=== PATIENT | male | born 1940 | race Caucasian/White ===

== ENCOUNTER 2025-04-16 12:39 | Emergency (ER) | payer MEDICARE, OTHER, SELFPAY ==
[2025-04-16 12:43] VITALS: BP 147/71
[2025-04-16 13:06] LABS: Hematocrit 36.1 % (39.0-52.0); Hemoglobin 11.6 g/dL (13.0-18.0); Mean Corp Hgb Conc. 32.1 g/dL (33.0-37.0); Mean Corpuscular Volume 92.3 fL (80.0-94.0); Red Cell Dist. Width 13.6 % (11.5-14.5)
[2025-04-16 13:20] LABS: ALT (SGPT) 29 U/L (0-50); AST (SGOT) 31 U/L (17-59); Albumin 4.2 g/dl (3.5-5.0); Alkaline Phosphatase 67 U/L (38-126); Blood Urea Nitrogen 31 mg/dl (9-20); Calcium 9.0 mg/dl (8.4-10.2); Carbon Dioxide 24 mmol/L (22-30); Chloride 108 mmol/L (98-107); Glucose 165 mg/dl (70-99); Potassium 5.0 mmol/L (3.5-5.1); Sodium 139 mmol/L (135-145); Total Protein 7.5 g/dl (6.3-8.2); eGFR 54.17
[2025-04-16 13:36] LABS: Nucleated Red Blood Cells % 0 % (-); Platelet Count 114 10^3/uL (130-400)
--- NOTE | 2025-04-16 17:04 | ED.GENMED ---
History of Present Illness
General
Chief Complaint: Dizziness
Source: patient and spouse
Time Seen by Provider: 04/16/25 16:40
History of Present Illness
History of Present Illness:
Note:
CHIEF COMPLAINT(S)
Lightheadedness experiencing multiple episodes, particularly when changing from sitting or lying to standing positions.
HISTORY OF PRESENT ILLNESS
The patient is an 84-year-old male with a significant past medical history of using Terazosin for hypertension for 20 years, presenting with lightheadedness. The episodes of lightheadedness occur primarily when shifting from a seated or lying
position to standing, notably early in the morning around 5 AM and after breakfast while standing in front of the curio. The patient described these episodes as feeling like losing strength of control, necessitating sitting down to prevent falling.
The blood pressure, as checked by the patients daughter who is a nurse, was recorded at 150/80 mmHg. The patient denies any recent chest pain, diarrhea, or dehydration with adequate fluid intake noted. No new medications have been started recently,
and he underwent a retinal surgery on the left eye on March 24, which resulted in a gas bubble and blurred vision. Presently, the patient reports feeling fine when at rest or lying in bed.
PAST MEDICAL AND SURGICAL HISTORY
- Chronic kidney disease with fluctuating creatinine levels (reported creatinine as high as 1.50).
- Retinal surgery on left eye with gas bubble insertion in March.
CHRONIC MEDICAL CONDITIONS SIGNIFICANTLY AFFECTING CARE
- Hypertension managed with Terazosin.
- Chronic kidney disease.
PHYSICAL EXAM
General: Alert, no acute distress.
Skin: Warm, dry.
Head: Normocephalic, atraumatic.
Neck: Supple, trachea midline.
Eye, Ears, Nose, Mouth, and Throat: Oral mucosa moist.
Cardiovascular: Normal peripheral perfusion, No edema.
Respiratory: Respirations are non-labored.
Gastrointestinal: Abdomen nondistended.
Back: Normal range of motion, Normal alignment.
Musculoskeletal: Normal range of motion, normal strength.
Neurological: Alert and oriented to person, place, time, and situation, No focal neurological deficit observed, no pronator drift, equal bilateral strength, normal coordination. Normal [id number]. Normal gait
Psychiatric: Cooperative, appropriate mood & affect.
PLAN
1. Conduct orthostatic vital signs to assess for orthostasis.
2. Review blood test results to rule out heart problems, stroke, severe anemia, and kidney failure.
3. Administer IV fluids to address possible dehydration and observe if symptoms improve.
4. Monitor and reassess the patients condition following these interventions.
DIFFERENTIAL DIAGNOSIS
The Differential Diagnosis includes, in no particular order and is not limited to:
1. Orthostatic hypotension
2. Dehydration
3. Adverse effects of antihypertensive medication
4. Vestibular dysfunction
5. Anemia
6. Arrhythmia
7. Heart failure
8. Transient ischemic attack
9. Neurological disorder
10. Hypoglycemia
Disposition:
SUMMARY OF ENCOUNTER
The patient, an 84-year-old male, presented with lightheadedness, which predominantly occurred when moving to a standing position. The symptoms were noted to be positional. During his emergency department (ED) visit, laboratory tests were conducted,
and IV fluids were administered. The patient experienced significant improvement in symptoms following fluid administration and was able to ambulate without further lightheadedness or balance issues.
DISPOSITION
Discharge.
ASSESSMENT
The patients symptoms suggestive of orthostatic hypotension improved with intravenous fluid administration.
EMERGENCY TREATMENTS ADMINISTERED
IV fluids.
REASSESSMENT
The patient was reassessed after the administration of IV fluids and reported feeling significantly better. He was able to stand and walk around the ED and go to the bathroom without any recurrence of symptoms.
PLAN
The patient is safe for discharge and advised to follow up with his primary care physician for further evaluation and management of his symptoms.
INDEPENDENT REVIEW OF LABS AND INTERPRETATION OF TESTS
My independent review of CBC indicates a hemoglobin level of 11.6 g/dL. My independent interpretation of the basic metabolic panel indicates a BUN/Creatinine ratio of 31/1.3 mg/dL and a glucose level of 165 mg/dL. My independent interpretation of
the EKG shows a right bundle branch block with no ischemic changes, demonstrating normal sinus rhythm.
FOLLOW-UP INSTRUCTIONS
The patient is advised to follow up with his primary care physician to reassess his condition and review his medication regimen.
MEDICATION RECONCILIATION
Administration of IV fluids was noted, and prescription adjustments should be considered during the follow-up.
MEDICAL DECISION MAKING
- Number and Complexity of Problems Addressed: Chronic conditions affecting care include hypertension managed with terazosin and chronic kidney disease. Differential Diagnosis includes orthostatic hypotension, dehydration, adverse effects of
antihypertensive medication, vestibular dysfunction, anemia, arrhythmia, heart failure, transient ischemic attack, neurological disorder, and hypoglycemia.
- Data:
Category 1
The patients symptoms were alleviated with IV fluid administration and reassessment confirmed improvement without recurrent symptoms.
Category 2
My independent interpretation of laboratory results and EKG confirmed findings.
-Risk: Consideration of Admission/Observation: Escalation of care, including admission/observation, was considered given the complexity and risk of the patients presenting complaint, exam findings, and underlying comorbidities. However, ultimately
the patient was deemed safe for outpatient management with close follow-up. Reasoning: Workup was reassuring, did not reveal any acute life/organ-threatening processes, patients symptoms were well controlled upon reevaluation, reexamination was
reassuring, vitals were stable, patient was agreeable with discharge and reliable for follow-up.
DIAGNOSIS
- Orthostatic hypotension (ICD-10: I95.1)
- Anemia (ICD-10: D64.9)
- Right bundle branch block (ICD-10: I45.10)
Phy Exam
Physical Exam
Physical Exam:
.
Course
Orders/Labs/Results
Orders:
Orders
04/16/25 12:40
Electrocardiogram (*1) Urgent
Reason for Study: Vertigo / Dizzy
EKG- Treatment ONCE
04/16/25 12:55
CBC/With Diff [Complete Blood Count/With Diff] Urgent
CMP [Comprehensive Metabolic Panel] Urgent
04/16/25 17:03
Orthostatic VS- Treatment ONCE
04/16/25 17:04
0.9% Sodium Chloride 1000 ml [Nss] 1,000 ml IV BOLUS
Abnormal Lab Results
04/16/25
12:55
RBC 3.91 L 10^6/uL
(4.70-6.10)
Hgb 11.6 L g/dL
(13.0-18.0)
Hct 36.1 L %
(39.0-52.0)
MCHC 32.1 L g/dL
(33.0-37.0)
Plt Count 114 L 10^3/uL
(130-400)
MPV 12.5 H fL
(7.4-10.4)
Abs Immat Gran (auto) 0.1 H 10^3/uL
(0-0.05)
Absolute Monos (auto) 0.8 H 10^3/uL
(0.1-0.6)
Immature Gran % 0.6 H %
(0-0.5)
Lymphocytes % 20.0 L %
(20.5-51.1)
Monocytes % 10.1 H %
(1.7-9.3)
Chloride 108 H mmol/L
(98-107)
BUN 31 H mg/dl
(9-20)
Glucose 165 H mg/dl
(70-99)
04/16/25 12:55
04/16/25 12:55
Vital Signs
Initial and Last Documented VS:
Initial Vital Signs
Temp Pulse Resp BP Pulse Ox
97.5 F 74 15 147/71 97
04/16/25 12:43 04/16/25 12:43 04/16/25 12:43 04/16/25 12:43 04/16/25 12:43
Last Documented Vital Signs
Temp Pulse Resp BP Pulse Ox
97.5 F 80 15 176/81 96
04/16/25 12:43 04/16/25 19:18 04/16/25 19:00 04/16/25 19:00 04/16/25 19:18
*Pulse Oximetry
SaO2: 97
Oxygen Mode of Delivery: Room air
Patient hypoxic: no
*EKG
Interpreted by ED Provider?: Yes
Interpretation: abnormal
Rate: normal
Rhythm: sinus
QRS Pattern: right bundle branch block
Ischemia: non-specific ST changes
*[facility] Programmer Interpretation
Rate: normal
Interpretation: normal
Rhythm: sinus
*Critical Care Note
Total Time (30-74mins, 75-104mins- exclusive of procedures): Not Applicable
ED Attending Note
-
Portions of this chart may have been created with voice recognition software.� Occasional wrong word or��sound alike� substitutions may have occurred due to the inherent limitations of voice recognition software.
Discharge Plan
Departure
Patient Disposition: Home (Routine Discharge)
Date of Disposition: 04/16/25
Time of Disposition: 19:35
Patient with high blood pressure during this ER visit?: Yes
Discharge Problem:
Lightheadedness, Dehydration
Instructions: Dizziness, Nonvertigo, (DC), BLOOD PRESSURE
Referrals:
Esvin Peralta I., DO [Family Provider, Internal Medicine]
Activity Restrictions/Additional Instructions:
Please see your doctor in the next 2 to 3 days for follow-up and reevaluation. Please drink plenty fluids and maintain proper hydration. Return immediately for chest pain, palpitations, fevers or any other concerns.
Interventions
Interventions:
*Risk Screen - Suicide Last Done: 04/16/25 19:23
*General Assessment Last Done: 04/16/25 12:43
*Neglect/Abuse Screening Last Done: 04/16/25 12:43
*ED- Fall Risk Assessment Last Done: 04/16/25 19:23
*ED COVID-19 Vaccine History Last Done: 04/16/25 12:43
*ED Influenza Vaccine History Last Done: 04/16/25 12:43
ED- Neurological Assessment Last Done: 04/16/25 17:23
ED- Cardiac Assessment Last Done: 04/16/25 19:23
ED Swallowing Screen Last Done: 04/16/25 17:23
Discharge Date and Time
Print Language: [place]
[2025-04-16 17:22] VITALS: BP 182/84
[2025-04-16 17:23] VITALS: BMI 28.1
[2025-04-16 17:25] VITALS: BP 168/78; BP 174/80; BP 182/84; PULSE 66; PULSE 68; PULSE 80
[2025-04-16 17:26] VITALS: BP 168/78
[2025-04-16] MEDS: NSS 1000 IV (17:37)
[2025-04-16 18:00] VITALS: BP 174/75
[2025-04-16 19:00] VITALS: BP 176/81
== END 2025-04-16 19:46 | disposition home or self-care (01) ==
LOC: EMR 12:39
PROVIDERS: EMERGENCY PHYSICIAN Emergency Medicine; FAMILY PHYSICIAN Internal Medicine
DX: R42 Dizziness and giddiness (principal); E86.0 Dehydration; I45.10 Unspecified right bundle-branch block; I12.9 Hypertensive chronic kidney disease with stage 1 through stage 4 chronic kidney disease, or unspecified chronic kidney disease; N18.9 Chronic kidney disease, unspecified
CPT/HCPCS: 99284; 96360; 80053; 85025; 93005